=== PATIENT | male | born 1935 | race Caucasian/White ===

== ENCOUNTER → 2016-09-05 | Outpatient (CLI) | payer MEDICARE, OTHER ==
[~2016-09-05] MED LIST: CALCIUM600 MG PO; DICLOFENAC SODI25 GM PO; GLUCOPHAGE XR500 MG PO; LIPITOR20 MG PO; ONE DAILY ESSE1 EACH PO; PRILOSEC20 MG PO; SILVADENE20 GM TOP; TRAZODONE HCL50 MG PO; TRIAMCINOLONE A15 GM TOP; ULTRAM50 MG PO; VIAGRA100 MG PO; VITAMIN C1000 MG PO
== END | disposition short-term general hospital (02) ==
LOC: CLCARD 10:01
DX: I48.0 Paroxysmal atrial fibrillation (principal); R07.9 Chest pain, unspecified; E78.5 Hyperlipidemia, unspecified; E11.9 Type 2 diabetes mellitus without complications; I12.0 Hypertensive chronic kidney disease with stage 5 chronic kidney disease or end stage renal disease; N18.3 Chronic kidney disease, stage 3 (moderate)

== ENCOUNTER → 2016-09-19 | Outpatient (CLI) | payer MEDICARE, OTHER | END | disposition short-term general hospital (02) | LOC: CLCARD 08:28 | DX: I48.0 Paroxysmal atrial fibrillation (principal); I12.0 Hypertensive chronic kidney disease with stage 5 chronic kidney disease or end stage renal disease; E11.22 Type 2 diabetes mellitus with diabetic chronic kidney disease; N18.3 Chronic kidney disease, stage 3 (moderate); E78.5 Hyperlipidemia, unspecified; Z79.899 Other long term (current) drug therapy ==